=== PATIENT | female | born 2000 | race Caucasian/White ===

== ENCOUNTER 2024-07-20 17:37 | Emergency (ER) | payer MEDICAID ==
[2024-07-20] MEDS ORDERED: Sodium Chloride 0.9% 10 ML Syringe FLUSH PRN (18:28)
[2024-07-20] MEDS: Prochlorperazine 10 MG/2 ML SDV IVPUSH ONE (19:04)
[2024-07-20] MEDS: diphenhydrAMINE 50 MG/ML SDV IVPUSH ONE (19:04)
[2024-07-20] MEDS: Ketorolac 30 MG/ML SDV IVPUSH ONE (19:05)
[2024-07-20] MEDS: Sodium Chloride 0.9% 500 ML IV ONE (19:13)
== END 2024-07-20 21:07 | disposition home or self-care (01) ==
LOC: FB.ED 17:37
DX: G43.E11 Chronic migraine with aura, intractable, with status migrainosus (principal); E86.0 Dehydration; F17.200 Nicotine dependence, unspecified, uncomplicated
CPT/HCPCS: 96361; 96374; 96375; 99283; J0780; J1200; J1885